=== PATIENT | female | born 1935 | race Caucasian/White ===

== ENCOUNTER 2020-01-08 10:04 | Day surgery (SDC) | payer MEDICARE, MEDICAID ==
[~2020-01-08 10:04] MED LIST: Bupivacaine 0.5% 50 ML MDV ONE; Lidocaine 1% with EPINEPHrine 1:100,000 50 ML MDV ONE; Midazolam 1 MG/ML 2 ML SDV ONE; Propofol 200 MG/20 ML SDV ONE; fentaNYL 100 MCG/2 ML SDV ONE
[2020-01-08] MEDS ORDERED: ceFAZolin 2 GM in Premix Bag 1 BAG IV ONE (11:00)
[2020-01-08] MEDS ORDERED: Sodium Chloride 0.9% 1,000 ML IV SCH (11:00)
[2020-01-08] MEDS ORDERED: Propofol 200 MG/20 ML SDV ONE (11:50)
[2020-01-08] MEDS ORDERED: Acetaminophen/HYDROcodone 325-5 MG Tab PO ONE (13:02)
[2020-01-08] MEDS ORDERED: Morphine 2 MG/ML SYRINGE IVPUSH PRN (13:46)
[2020-01-08] MEDS ORDERED: Lidocaine/Prilocaine 2.5-2.5% Crm 5 GM Tube TOP ONE (13:52)
[2020-01-08 14:40] VITALS: BP 142/82; PULSE 72
--- NOTE | 2020-01-09 11:22 | OR ---
DATE OF PROCEDURE: 01/08/2020 SURGEON: Nate Kaur MD PROCEDURE: Excision of basal cell carcinoma, right posterior calf, 15.1 cm x 2.1 cm with a margin around the entire malignancy of 5 mm, full thickness. COMPLICATION: None. MOTOR VEHICLE EMISSIONS INSPECTOR: None. PREPROCEDURE DIAGNOSIS: Basal cell carcinoma. RISKS: Risks, benefits, alternatives, and limitations including but not limited to infection, bleeding, and requirement for reoperation along with chronic wounds healing by secondary and tertiary intention, and other risks not listed here were explained to the patient, who wished to proceed. PROCEDURE IN DETAIL: The patient was placed in prone position. The aforementioned lesion identified and excised in an elliptical fashion. This was to the measurements as described above. This was full thickness. This was done at the fascia level. Anterior and posterior flaps were then created to further mobilize the wound, which was closed with layers of 3-0 Vicryl, dung, horizontal mattress sutures. Dressings were applied. The patient tolerated the procedure well. Nate Kaur MD /[id number]
== END 2020-01-08 15:00 | disposition home or self-care (01) ==
LOC: JP.SDS 10:04
PROVIDERS: ATTEND Surgery
DX: C44.712 Basal cell carcinoma of skin of right lower limb, including hip (principal); J44.9 Chronic obstructive pulmonary disease, unspecified; I12.9 Hypertensive chronic kidney disease with stage 1 through stage 4 chronic kidney disease, or unspecified chronic kidney disease; N18.31 Chronic kidney disease, stage 3a; E78.5 Hyperlipidemia, unspecified; E66.9 Obesity, unspecified; Z68.35 Body mass index [BMI] 35.0-35.9, adult; Z79.899 Other long term (current) drug therapy; Z88.8 Allergy status to other drugs, medicaments and biological substances
CPT/HCPCS: 11606; A9270; J0690; J2250; J2270; J2704; J3010; J3490; J7030

== ENCOUNTER 2022-12-18 07:21 | Day surgery (SDC) | payer MEDICARE, MEDICAID ==
[2022-12-18] MEDS ORDERED: Propofol 200 MG/20 ML SDV ONE (08:01)
[2022-12-18] MEDS ORDERED: fentaNYL 50 MCG/ML SDV ONE (08:01)
[2022-12-18] MEDS: Sodium Chloride 0.9% 1,000 ML IV SCH (08:20)
[2022-12-18 09:48] VITALS: BP 124/63; PULSE 68
== END 2022-12-18 09:58 | disposition home or self-care (01) ==
LOC: JP.SDS 07:21
PROVIDERS: ATTEND Surgery
DX: K21.00 Gastro-esophageal reflux disease with esophagitis, without bleeding (principal); K22.89 Other specified disease of esophagus; I10 Essential (primary) hypertension; J44.9 Chronic obstructive pulmonary disease, unspecified; I25.10 Atherosclerotic heart disease of native coronary artery without angina pectoris; Z86.73 Personal history of transient ischemic attack (TIA), and cerebral infarction without residual deficits; Z88.8 Allergy status to other drugs, medicaments and biological substances
CPT/HCPCS: 43239; 88305; J2704; J3010; J7030